=== PATIENT | male | born 1970 | race African-American/Black ===

== ENCOUNTER 2019-06-25 12:21 | Emergency (ER) | payer SELFPAY ==
[2019-06-25 12:36] VITALS: BP 149/91; PULSE 87; RESP 18; TEMP 36.6; O2SAT 100
--- NOTE | 2019-06-25 13:15 | ED.MALEGU ---
HPI - Male Genitourinary General Chief complaint: Urogenital-Male Stated complaint: ABD PAIN Time Seen by Provider: 06/25/19 12:23 Source: patient Mode of arrival: ambulatory Limitations: no limitations History of Present Illness HPI Narrative: 48-year-old male presents to urgent care with complaints of burning with urination for the past 3 days. Patient reports that his symptoms started after having unprotected intercourse with a new partner 3 days ago. Patient denies penile discharge, open sores, abdominal pains, flank pain, fever, bites, chills, nausea, vomiting or diarrhea. MD Complaint: dysuria Onset (ago): day(s) (3) Duration: constant Relieving factors: none Exacerbating factors: none Associated symptoms: Reports denies other symptoms Related Data Sexually active: Yes Home Medications Medication Instructions Recorded Confirmed No Home Medications 06/25/19 06/25/19 Allergies Allergy/AdvReac Type Severity Reaction Status Date / Time No Known Allergies Allergy Verified 06/25/19 12:40 Review of Systems Review of Systems: All systems reviewed & are unremarkable except as noted in HPI and below Constitutional: Constitutional: Denies chills, Denies fatigue, Denies fever(s) and Denies weakness Cardiovascular: Cardiovascular: Denies no additional cardiovascular complaints, Denies chest pain and Denies radiating jaw, neck or arm pain Respiratory: Respiratory: Denies cough, Denies dyspnea and Denies wheezing Gastrointestinal: Gastrointestinal: Denies abdominal pain, Denies diarrhea, Denies nausea and Denies vomiting Genitourinary: Genitourinary: Denies hematuria, Denies oliguria, Denies genital lesions, Reports dysuria, Denies penile discharge, Denies urinary frequency and Denies urinary incontinence Musculoskeletal: Musculoskeletal: Denies back pain Exam Const: General: healthy appearing, no acute distress and alert Nutritional Appearance: well nourished Neck: Neck: normal visual inspection Resp: Effort & Inspection: normal respiratory effort Auscultation: clear to auscultation bilaterally Cardio: Rate: regular rate Rhythm: regular rhythm Heart sounds: no murmurs GI: Inspection: non-distended GI Palp: Yes Soft to palpation, No Tenderness to palpation present (GI), No Guarding due to palpation present (GI) and No Rigid due to palpation Auscultation: normal bowel sounds : General: Yes bladder normal to palpation and Yes no CVA tenderness Testes: Testes normal Other: penile exam deferred -- pt refuses Back/Spine/Pelvis: Back: no CVA tenderness Skin: General skin exam: normal color Rashes: no rashes Neuro: General: patient oriented x3, moves all extremities and no meningeal signs Speech: normal speech Extrem: General: normal to inspection Course Vital Signs Vital signs: Vital Signs Temperature 36.6 C 06/25/19 12:36 Pulse Rate 87 06/25/19 12:36 Respiratory Rate 18 06/25/19 12:36 Blood Pressure 149/91 H 06/25/19 12:36 Pulse Oximetry 100 06/25/19 12:36 Temperature 36.6 C 06/25/19 12:36 Pulse Rate 87 06/25/19 12:36 Respiratory Rate 18 06/25/19 12:36 Blood Pressure 149/91 H 06/25/19 12:36 Pulse Oximetry 100 06/25/19 12:36 MDM - Male Genitourinary MDM Narrative Medical decision making narrative: Urine will be sent to lab for chlamydia, gonorrhea and trichomonas. Urinalysis was negative today. Patient agrees to call us for lab results in 3 to 5 days. Patient agrees to abstain from intercourse until lab results are back. Differential Diagnosis Differential diagnosis: Likely urinary tract infection, epididymitis and other (STD) Lab Data Labs: Urine Glucose Negative Reference Range: Negative Urine Bilirubin Negative Reference Range: Negative Urine Ketone Negative Reference Range: Negative Urine Specific [place] 1.025 Reference Range:1.001-1.035
[2019-06-25] MEDS: AZITHROMYCIN 250 MG TABLET 500 MG PO ×2 (13:39→13:40)
[2019-06-25] MEDS: cefTRIAXone 250 MG VIAL IM (13:40)
== END 2019-06-25 14:23 | disposition home or self-care (01) ==
PROVIDERS: Emergency Provider Nurse Practitioner Family
DX: R30.0 Dysuria (principal); Z72.51 High risk heterosexual behavior
CPT/HCPCS: 81003; 87491; 87591; 87661; 96372; 99213; A9270; G0463; J0696

== ENCOUNTER 2020-07-31 01:43 | Emergency (ER) | payer OTHER, SELFPAY ==
[2020-07-31 01:46] VITALS: BP 134/75; PULSE 86; RESP 14; TEMP 36.6; O2SAT 98
--- NOTE | 2020-07-31 02:16 | ED.DENTAL ---
HPI - Dental/Oral General Chief complaint: Dental/Oral Stated complaint: dental pain Time Seen by Provider: 07/31/20 02:16 History of Present Illness HPI Narrative: Pain in tooth # 3 since 1400 yesterday. Radiates into his cheek and causes a headache. The pain is severe and prevents him form sleeping. this is a new problem. No fever, weakness. Related Data Allergies Allergy/AdvReac Type Severity Reaction Status Date / Time No Known Allergies Allergy Verified 07/31/20 02:22 Review of Systems Review of Systems: All systems reviewed & are unremarkable except as noted in HPI and below Constitutional: Constitutional: Denies chills, Denies fever(s) and Denies weakness Eyes: Eyes: Denies change in vision ENT: Denies dizziness and Denies sore throat Cardiovascular: Cardiovascular: Denies chest pain Respiratory: Respiratory: Denies dyspnea Gastrointestinal: Gastrointestinal: Denies nausea PMFSH Social History Social History Smoking status: Current every day smoker Exam Const: General: healthy appearing, no acute distress and alert Orientation/consciousness: patient oriented x3 HENMT: Face and sinus: sinus tenderness maxillary (right) Teeth and gingiva: abnormal tooth and associated gingiva (#3 bloody drainage, surrounding erythema) Eyes: Pupils: Equal, round and reactive pupils present Neck: Neck: normal visual inspection and no lymphadenopathy Resp: Effort & Inspection: normal respiratory effort Skin: General skin exam: normal color Neuro: General: patient oriented x3, moves all extremities and CN's II-XI intact bilaterally Speech: normal speech Gait exam (Neuro): Normal gait present Extrem: General: normal to inspection Course Vital Signs Vital signs: Vital Signs Temperature 36.6 C 07/31/20 01:46 Pulse Rate 86 07/31/20 01:46 Respiratory Rate 14 07/31/20 01:46 Blood Pressure 134/75 07/31/20 01:46 Pulse Oximetry 98 07/31/20 01:46 Temperature 36.6 C 07/31/20 01:46 Pulse Rate 86 07/31/20 01:46 Respiratory Rate 14 07/31/20 01:46 Blood Pressure 134/75 07/31/20 01:46 Pulse Oximetry 98 07/31/20 01:46 Procedures Nerve Block Nerve Block 1: Local Anesthetic: bupivacaine 0.5% and with epi Amount of anesthesia used (mL): 6 Side: right Intraoral Nerve Block: supraperiosteal and superior alveolar Procedure Successful: Yes Patient Tolerated Procedure: well Complications: none MDM - Dental/Oral MDM Narrative Medical decision making narrative: block successful. I suspect small periapical abscess. Nothing drainable on exam. Differential Diagnosis Differential diagnosis: Likely dental caries, toothache and dental abscess Medical Records Attestation: I reviewed the patient's medical records. Lab Data Attestation: I reviewed the patient's lab results. Discharge Plan Discharge Clinical Impression: Dental abscess Patient Disposition: Home, Self-Care Condition: Stable Instructions: Antibiotic Form, Dental Abscess (ED) Prescriptions: New penicillin V potassium 500 mg tablet 500 mg PO Q12H Qty: 20 RF: 0 hydrocodone-acetaminophen 5-325 mg tablet 1 tablet PO Q6H PRN (Reason: pain) Qty: 5 RF: 0 Follow-up/Referrals: PHYSICIAN,PERCUSSION INSTRUMENT REPAIRER [Primary Care Provider] - Stand Alone Forms: Work/School Release IP
[2020-07-31] MEDS: HYDROcodone/acetaminophen (*CRX) 5-325 MG TABLET 1 TAB PO (02:43)
[2020-07-31] MEDS: PENICILLIN V POTASSIUM 250 MG TABLET 500 MG PO (02:43)
[2020-07-31 04:15] VITALS: BP 129/77; PULSE 78; RESP 19; O2SAT 97
== END 2020-07-31 04:15 | disposition home or self-care (01) ==
PROVIDERS: Emergency Provider Emergency Medicine
DX: K04.7 Periapical abscess without sinus (principal); F17.200 Nicotine dependence, unspecified, uncomplicated
CPT/HCPCS: 64400; 99283; A9270

== ENCOUNTER 2020-12-26 14:07 | Emergency (ER) | payer OTHER, SELFPAY ==
[2020-12-26 14:23] VITALS: BP 138/82; PULSE 85; RESP 20; TEMP 36.4; O2SAT 100
--- NOTE | 2020-12-26 14:31 | ED.SKABFB ---
HPI - Skin/Abscess/Foreign Bdy General Chief complaint: Skin/Abscess/Foreign Body Stated complaint: RASH/PAIN TO RIGHT SIDE Time Seen by Provider: 12/26/20 14:31 Source: patient and RN notes reviewed Mode of arrival: ambulatory Limitations: no limitations History of Present Illness HPI narrative: 50-year-old male presents to the [facility] with a red painful rash since , 2 days ago to the right lateral aspect of the abdomen. Denies fevers, chest pain, abdominal pain. No shortness of breath. No treatment prior to arrival. Related Data Allergies Allergy/AdvReac Type Severity Reaction Status Date / Time No Known Allergies Allergy Verified 12/26/20 14:23 Review of Systems Review of Systems: All systems reviewed & are unremarkable except as noted in HPI and below Constitutional: Constitutional: Reports no additional constitutional complaints, Denies chills and Denies fever(s) Eyes: Eyes: Reports no additional eye complaints Cardiovascular: Cardiovascular: Reports no additional cardiovascular complaints and Denies chest pain Respiratory: Respiratory: Reports no additional respiratory complaints, Denies cough and Denies dyspnea Gastrointestinal: Gastrointestinal: Reports no additional gastrointestinal complaints, Denies abdominal pain, Denies nausea and Denies vomiting Musculoskeletal: Musculoskeletal: Reports no additional musculoskeletal complaints Integumentary/Breasts: Skin/Breast: Reports as per HPI and Reports rash Neurologic: Reports system reviewed and no additional complaints, except as documented Psychiatric: Psychiatric: Reports no additional psychiatric complaints Allergic/Immunologic: Allergic/Immunologic: Reports no additional allergic/immunologic complaints [facility] Past Medical History Medical History (Updated 12/26/20 @ 17:56 by Marilyn Mcdowell) No significant medical problems Surgical History Surgical History (Updated 12/26/20 @ 17:56 by Marilyn Mcdowell) No significant past surgical history Social History Social History Smoking status: Current every day smoker Comments At the time of my signature, I reviewed and agree with the nursing past medical, surgical, social, and family history. There is no relevant family history pertinent to the patient complaint. Exam Const: General: healthy appearing, no acute distress and alert Nutritional Appearance: well nourished and obese Orientation/consciousness: patient oriented x3 Limitations: no limitations HENMT: Head: normal to inspection Eyes: Conjunctivae: conjunctivae normal Pupils: Equal, round and reactive pupils present Neck: Neck: normal visual inspection, no lymphadenopathy and no meningeal signs Chest: Chest palpation & inspection: normal inspection of the chest Resp: Effort & Inspection: normal respiratory effort Auscultation: clear to auscultation bilaterally Cardio: Rate: regular rate Rhythm: regular rhythm GI: GI Palp: Yes Soft to palpation and No Tenderness to palpation present (GI) Skin: Other: Herpetic rash noted right lateral aspect of abdomen Neuro: General: patient oriented x3, moves all extremities, no meningeal signs and no focal motor deficits Speech: normal speech Gait exam (Neuro): Normal gait present Extrem: General: normal to inspection Psych: Appearance: grossly normal and well kempt Mental Status: mental status grossly normal Affect: normal affect Attitude: cooperative Thought content: Yes Normal thought content present Course Course Emergency Course: Discharge instructions reviewed with patient, as well as provided in writing per nursing staff. The instructions also include specific and strict return/GO TO THE ER as well as f/u information. All questions have been answered, and the patient deny any further questions with discharge and discharge plan. Vital Signs Vital signs: Vital Signs Temperature 97.5 F L 12/26/20 14:23 Pulse Rate 85
== END 2020-12-26 14:45 | disposition home or self-care (01) ==
PROVIDERS: Emergency Provider Nurse Practitioner
DX: B02.9 Zoster without complications (principal)
CPT/HCPCS: 99213; G0463

== ENCOUNTER 2021-11-04 23:01 | Emergency (ER) | payer OTHER, SELFPAY ==
[2021-11-04 23:15] VITALS: BP 168/87; PULSE 85; RESP 18; TEMP 36.4; O2SAT 100
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
[2021-11-05 00:52] VITALS: BP 168/73; PULSE 82; RESP 18; O2SAT 98
== END 2021-11-05 00:57 | disposition home or self-care (01) ==
PROVIDERS: Emergency Provider Emergency Medicine
DX: S05.02XA Injury of conjunctiva and corneal abrasion without foreign body, left eye, initial encounter (principal); F17.200 Nicotine dependence, unspecified, uncomplicated; W20.8XXA Other cause of strike by thrown, projected or falling object, initial encounter
CPT/HCPCS: 99283